=== PATIENT | male | born 1925 | race Caucasian/White ===

== ENCOUNTER 2016-09-03 22:47 | Emergency (ER) | payer MEDICARE ==
[2016-09-04 00:04] LABS: BASOPHILS 0.2 % (0-2); EOSINOPHILS 0.2 % (0-7); HEMATOCRIT 37.5 % (42.0-54.0); HEMOGLOBIN 12.3 g/dL (13.5-17.5); IMMATURE GRANULOCYTES 0.2 % (0-5); LYMPHOCYTES 9.7 % (15-50); MCH 31.1 pg (26.0-34.0); MCHC 32.8 g/dL (31.0-37.0); MCV 94.9 fL (80.0-100.0); MEAN PLATELET VOLUME 9.4 fL (7.4-10.4); MONOCYTES 12.6 % (2-11); NEUTROPHILS 77.1 % (40-80); PLATELET COUNT 211 10x3/uL (130-400); RBC 3.95 10x6/uL (4.20-6.10); RDW 12.5 % (11.5-14.5); WBC 10.4 10x3/uL (4.8-10.8)
[2016-09-04 00:16] LABS: ALBUMIN 3.3 g/dL (3.4-5.0); ANION GAP 10.7 mmol/L (8-16); CALCIUM 9.2 mg/dL (8.5-10.1); CARBON DIOXIDE 28.3 mmol/L (21.0-32.0); CREATININE - SERUM 1.6 mg/dL (0.6-1.3); PROTEIN - SERUM 7.2 g/dL (6.4-8.2)
[2016-09-04 01:50] LABS: CREATINE KINASE 479 UL (21-232); PRO BNP 6227 pg/mL (0-450); TROPONIN-I 0.023 ng/mL (0.000-0.060)
== END 2016-09-04 14:22 | disposition left against medical advice (07) ==
LOC: D.ER 22:47 → D.SDCHOLD 09-04 01:55 → D.ER 09-04 14:22
PROVIDERS: Emergency Medicine
DX: R53.1 Weakness (principal); R50.9 Fever, unspecified; N17.9 Acute kidney failure, unspecified; D64.9 Anemia, unspecified; J42 Unspecified chronic bronchitis; I50.9 Heart failure, unspecified